=== PATIENT | male | born 1980 | race Hispanic/Latino ===

== ENCOUNTER 2023-08-17 08:58 | Emergency (ER) | payer SELFPAY ==
[2023-08-17] MEDS ORDERED: Ketorolac Tromethamine 30 MG/ML VIAL ONE ×2 (10:48→10:49)
[2023-08-17] MEDS ORDERED: Cyclobenzaprine 10 MG TAB ONE (10:48)
== END 2023-08-17 14:00 | disposition home or self-care (01) ==
LOC: ERS 08:58
DX: M54.50 Low back pain, unspecified (principal)
CPT/HCPCS: 96372; J1885

== ENCOUNTER 2025-06-18 14:32 | Emergency (ER) | payer SELFPAY ==
[2025-06-18] MEDS ORDERED: Ketorolac Tromethamine 30 MG (1 mL) VIAL ONE (17:49)
[2025-06-18 17:58] LABS: #Basophils 0.06 10x3/uL (0.0-0.2); #Eosinophils 0.03 10x3/uL (0.0-0.7); #Monocytes 1.61 10x3/uL (0.11-0.59); #Neutrophils 18.91 10x3/uL (1.40-6.50); %Basophils 0.3 % (0.0-1.0); %Eosinophils 0.1 % (0.0-10.0); %Lymphocytes 6.6 % (21.0-51.0); %Monocytes 7.3 % (0.0-10.0); %Neutrophils 85.2 % (42.0-75.0); Hematocrit 43.7 % (42.0-52.0); Hemoglobin 15.0 g/dL (14.0-18.0); Mean Corpuscular Hemoglobin 29.6 pg (27.0-31.0); Mean Corpuscular Volume 86.2 fL (78.0-98.0); Platelet Count 234 10x3/uL (130-400); Red Blood Cell (RBC) Count 5.07 mill/uL (4.70-6.10); White Blood Cell (WBC) Count 22.20 10x3/uL (4.8-10.8)
[2025-06-18 18:28] LABS: ALT (SGPT) 24 U/L (Less than 45); AST (SGOT) 35 U/L (11-34); Albumin 4.5 g/dL (3.1-4.5); Alkaline Phosphatase 80 U/L (40-110); Anion Gap 14 mmol/L (10-20); BUN (Urea Nitrogen) 13 mg/dL (8.9-20.6); Bilirubin, Total 0.3 mg/dL (0.3-1.2); Calc. Creatinine Clearance 0 mL/min (70-130); Calcium 8.8 mg/dL (7.8-10.44); Carbon Dioxide 24 mmol/L (22-29); Chloride 107 mmol/L (98-107); Globulin 2.5 g/dL (2.4-3.5); Glucose 126 mg/dL (70-105); Magnesium 2.0 mg/dL (1.6-2.6); Potassium 3.6 mmol/L (3.5-5.1); Sodium 141 mmol/L (136-145)
== END 2025-06-18 18:55 | disposition home or self-care (01) ==
LOC: ERS 14:32
DX: R55 Syncope and collapse (principal)
CPT/HCPCS: 70450; 72125; 80053; 83735; 84484; 85025; 93005; 96374; J1885